=== PATIENT | female | born 1940 | race Hispanic/Latino ===

== ENCOUNTER 2024-09-08 08:20 | Day surgery (SDC) | payer OTHER, MEDICARE ==
[2024-09-08] VITALS (12 sets, daily range): BP systolic 113–185; BP diastolic 46–68; PULSE 50–58; RESP 10–16; TEMP 97.1–98.3
[~2024-09-08] VITALS: Ht 160 cm; Wt 53.5 kg
[2024-09-08] MEDS: 0.9%NACL 1000ML 1,000 ML IV ONE (09:48)
[2024-09-08] MEDS ORDERED: LOSA50TA64 PO (10:13)
[2024-09-08] MEDS ORDERED: ATOR10 PO (10:13)
[2024-09-08] MEDS ORDERED: AMIO200T68 PO (10:13)
[2024-09-08] MEDS ORDERED: CLON0.1T PO (10:13)
[2024-09-08] MEDS ORDERED: APIX2.5T PO (10:13)
[2024-09-08] MEDS ORDERED: HYDR12.54 PO (10:13)
[2024-09-08] MEDS ORDERED: METO-391 PO (10:13)
[2024-09-08] MEDS ORDERED: proPOFol 10 MG/ML 20ML VIAL IV ONE (10:53)
--- NOTE | 2024-09-08 12:32 | NUR ---
Full and complete discharge instructions given to Patient and family. Voiced understanding of GI procedures and follow up expectations/Diet. All questions answered. PIV removed with catheter tip intact. W/C to POV with Family.
== END 2024-09-08 12:25 | disposition home or self-care (01) ==
LOC: ENDO 08:20 → DAH 08:20 → ENDO 12:25
PROVIDERS: ATTEND Internal Medicine Gastroenterology
DX: D50.9 Iron deficiency anemia, unspecified (principal); K29.50 Unspecified chronic gastritis without bleeding; K57.30 Diverticulosis of large intestine without perforation or abscess without bleeding; K44.9 Diaphragmatic hernia without obstruction or gangrene; I10 Essential (primary) hypertension; M19.90 Unspecified osteoarthritis, unspecified site; I25.10 Atherosclerotic heart disease of native coronary artery without angina pectoris; E78.00 Pure hypercholesterolemia, unspecified; I48.91 Unspecified atrial fibrillation; Z79.01 Long term (current) use of anticoagulants; Z79.899 Other long term (current) drug therapy
CPT/HCPCS: 43239; 45378; J7030 ×2; J2704; A4615; A4215 ×2; A4223; A4657; A4222; A4221; A4663; A4606; J3490